=== PATIENT | male | born 1960 | race African-American/Black ===

== ENCOUNTER 2018-06-24 10:57 | Emergency (ER) | payer MEDICARE, OTHER ==
[~2018-06-24] VITALS: Ht 180.3 cm; Wt 78.0 kg
[2018-06-24 11:30] VITALS: BP 143/112
[2018-06-24] MEDS ORDERED: ALBUTEROL (0.083%) 2.5MG/3ML NEB HHN ONE (12:00)
[2018-06-24 12:26] LABS: CLARITY URINE CLEAR (CLEAR); COLOR URINE DARK YELLOW (YELLOW); KETONES URINE 2+ (NEGATIVE); LEUKOCYTE ESTERASE URINE NEGATIVE (NEGATIVE); NITRITE URINE NEGATIVE (NEGATIVE); OCCULT BLOOD URINE NEGATIVE (NEGATIVE); PH URINE >=9.0 (4.5-8.0); PROTEIN URINE 1+ (NEGATIVE); SPECIFIC GRAVITY URINE 1.023 (1.005-1.030)
[2018-06-24] MEDS ORDERED: FAMOTIDINE 20MG TABLET PO ONE (12:30)
[2018-06-24 12:59] LABS: BASOPHILS % 0.6 % (0.0-2.0); EOSINOPHILS % 0.1 % (0.0-5.0); HEMATOCRIT. 47.2 % (42.0-52.0); HEMOGLOBIN. 15.9 g/dL (14.0-18.0); LYMPHOCYTES % 27.9 % (20.0-50.0); MEAN CORPUSCULAR VOLUME 94.7 fL (80.0-94.0); MEAN PLATELET VOLUME 8.6 fl (7.4-10.4); MONOCYTES % 8.6 % (2.0-8.0); NEUTROPHILS % 62.8 % (40.0-76.0); PLATELET 231 x1000/uL (130-400); RED BLOOD CELL COUNT 4.98 mill/uL (4.7-6.1); RED CELL DISTRIBUTION WIDTH 14.5 % (11.6-14.6)
[2018-06-24 13:08] LABS: CHLORIDE 97 mEq/L (98-107)
== END 2018-06-24 13:55 | disposition left against medical advice (07) ==
LOC: ER 12:33
DX: R05 Cough (principal); R07.89 Other chest pain; F17.200 Nicotine dependence, unspecified, uncomplicated; F14.10 Cocaine abuse, uncomplicated
CPT/HCPCS: 36415; 71045; 80053; 81003; 83880; 84484; 85025; 93005; 94640; 99285

== ENCOUNTER 2024-02-14 23:46 | Emergency (ER) | payer OTHER ==
[~2024-02-14] VITALS: Ht 180.3 cm; Wt 51.0 kg
[2024-02-15] VITALS: BP 152/80; PULSE 82; RESP 18; TEMP 98.3; O2SAT 100
[2024-02-15] MEDS ORDERED: ACETAMINOPHEN 500MG TABLET PO ONE (00:45)
== END 2024-02-15 01:44 | disposition left against medical advice (07) ==
LOC: ER 23:46
DX: R07.81 Pleurodynia (principal); E11.9 Type 2 diabetes mellitus without complications; F14.10 Cocaine abuse, uncomplicated
CPT/HCPCS: 99281

== ENCOUNTER 2025-01-31 10:34 | Emergency (ER) | payer OTHER ==
[~2025-01-31] VITALS: Ht 180.3 cm; Wt 73.0 kg
[2025-01-31 10:38] VITALS: TEMP 36.7; O2SAT 100
[2025-01-31 11:07] LABS: POTASSIUM 3.4 mEq/L (3.5-5.1)
[2025-01-31 11:08] LABS: CALCIUM 9.1 mg/dL (8.7-10.4)
[2025-01-31] MEDS: ONDANSETRON 4MG ODT PO STA (11:11)
[2025-01-31 11:13] LABS: BASOPHILS % 0.4 % (0.0-2.0); CREATININE 2.8 mg/dL (0.6-1.3); EOSINOPHILS % 0.1 % (0.0-5.0); HEMATOCRIT. 55.9 % (42.0-52.0); HEMOGLOBIN. 19.2 g/dL (14.0-18.0); LYMPHOCYTES % 15.2 % (20.0-50.0); MEAN CORPUSCULAR HEMOGLOBIN 31.7 pg (28.0-32.0); MEAN CORPUSCULAR HGB CONC 34.3 g/dL (31.0-37.0); MEAN CORPUSCULAR VOLUME 92.5 fL (80.0-94.0); MEAN PLATELET VOLUME 8.5 fl (7.4-10.4); MONOCYTES % 8.7 % (2.0-8.0); NEUTROPHILS % 75.6 % (40.0-76.0); PLATELET 266 x1000/uL (130-400); RED BLOOD CELL COUNT 6.04 mill/uL (4.7-6.1); RED CELL DISTRIBUTION WIDTH 15.2 % (11.6-14.6)
[2025-01-31 11:23] LABS: PROTHROMBIN TIME 10.8 sec (9.6-11.0)
[2025-01-31] MEDS: VISCOUS LIDOCAINE 2% 15 ML UDC PO STA (11:25)
[2025-01-31] MEDS: MAGNESIUM/ALUMINUM HYDROXIDE/SIMETHICONE 30ML UDC PO STA (11:25)
[2025-01-31] MEDS ORDERED: MAG-55 MT (11:52)
[2025-01-31 12:02] VITALS: BP 137/95; PULSE 108; RESP 16; O2SAT 100
== END 2025-01-31 12:06 | disposition home or self-care (01) ==
LOC: ER 10:34
DX: R11.0 Nausea (principal); F14.10 Cocaine abuse, uncomplicated; E11.9 Type 2 diabetes mellitus without complications
CPT/HCPCS: 99284; 80048; 83690; 85025; 85610; 36415; Q0162